=== PATIENT | male | born 1975 | race Caucasian/White ===

== ENCOUNTER → 2022-02-25 | Outpatient (CLI) | payer MEDICAID, SELFPAY | END | disposition home or self-care (01) | PROVIDERS: PCP Internal Medicine; Visit Provider Physician Assistant | DX: L03.90 Cellulitis, unspecified (principal) | CPT/HCPCS: 87070; 87077; 87186; 87205 ==

== ENCOUNTER 2022-02-27 10:28 | Emergency (ER) | payer MEDICAID, SELFPAY ==
[2022-02-27 10:30] VITALS: BP 148/93; PULSE 69; RESP 18; TEMP 36.7; O2SAT 97; BMI 28.2
--- NOTE | 2022-02-27 11:52 | EDS_ITS ---
HPI History of Present Illness Chief Complaint: Bite Narrative Narrative: Patient presents for wound check of an abscess on his left knee. He states that 3 weeks ago he was in [place], and had a spider bite to his left knee. He took Bactrim for 7 to 10 days. When he returned to [place], he was seen and evaluated by his primary care physician. He has been on cephalexin and doxycycline for the last 3 to 4 days. He denies any fevers or chills. No nausea or vomiting. No pain in his leg. He states that the swelling has gone down along with the erythema. He was cleaning the abscess on his left leg and it started draining a large amount a few days ago. He states that he was seen by the physician speech language pathologist assistant his primary care physician's office who sent him in for evaluation of his wound. He denies any pain in his knee. He is able to move it without difficulty. [facility] Medical History ADHD Anxiety and depression Driving safety issue Low libido Right knee pain Home Medications cephalexin 500 mg capsule 500 mg PO TID #21 caps 02/25/22 [Rx Last Taken Unknown] doxycycline hyclate 100 mg capsule 100 mg PO BID #14 caps 02/25/22 [Rx Last Taken Unknown] Allergy/AdvReac Type Severity Reaction Status Date / Time codeine Allergy Severe Anaphylaxis Verified 02/25/22 11:14 Social History Smoking Status: Never smoker alcohol intake: current substance use type: does not use what type of physical activity do you participate in: walking ROS ROS ED ROS Narrative Constitutional: No fever, no chills. HEENT: No sore throat. No neck pain. No loss of vision. No rhinorrhea. Cardiovascular: No chest pain. No palpitations. No pedal edema. Respiratory: No cough, no shortness of breath. Abdominal: No abdominal pain. No nausea. No vomiting. Genitourinary: No dysuria. No hematuria. Musculoskeletal: No myalgias. No arthralgias. Neurologic: No headaches. No dizziness. No lightheadedness. Skin: No rash. Positive abscess lateral left knee distal to patella, draining purulent material. Psychiatric: No depression. No anxiety. EXAM Physical Exam Narrative Exam Narrative: Afebrile. Vital signs noted. HEENT: Normocephalic. Atraumatic. PERRL, EOMI. Neck soft and supple. No point tenderness or step off. Cardiovascular: Regular rate and rhythm. No murmurs, rubs, or gallops appreciated. Respiratory: No tachypnea. Lungs clear to auscultation bilaterally. Gastrointestinal: Abdomen soft, nontender, with normoactive bowel sounds. No rebound or guarding. Neurological: Awake. Alert. Nonfocal, nonlateralizing. Skin: No rash. Normal color. No pallor. Positive draining abscess left lateral knee. Extension and flexion mechanisms intact. Palpable dorsalis pedis pulse. Minimal erythema. Improved from photo shown from a few days ago by patient. Musculoskeletal: No pedal edema. Full range of motion extremities. Const Vital Signs: 02/27/22 10:30 Temperature 98.1 F Temperature Source Temporal Pulse Rate 69 Respiratory Rate 18 Blood Pressure 148/93 H Blood Pressure Mean 111 Pulse Ox 97 Oxygen Delivery Method Room Air MDM MDM MDM Narrative Medical decision making narrative: Patient and his states that he were sent to ensure that there was no bony erosion. Patient has no pain in his left knee. I am not concerned about septic arthritis as he has full range of motion of his left knee without pain. I do feel he can be discharged safely home with follow-up to his primary care physician. He will continue his cephalexin and doxycycline and continue to apply warm compresses. I did offer to open up the wound further with incision and drainage but the patient declined. He states that he has seen vast improvement over the last few days with it already draining and the antibiotics he is taking. I do not feel that any imaging is indicated emergently. Return instructions to the emergency department were reviewed. Disposition is discharged home in stable condition. Discharge Plan Triage Chief Complaint: Bite Other Complaint: Cellulitis ED Provider: Dave Jeffries Dx/Rx/DC Orders Clinical Impression: Visit for wound check, Abscess of skin of left knee Instructions: ED Abscess Antibiotic Treatment Only Prescriptions: No Action cephalexin 500 mg capsule 500 mg PO TID Qty: 21 0RF doxycycline hyclate 100 mg capsule 100 mg PO BID Qty: 14 0RF Primary Care Provider: Radha Puente Referrals: Radha Puente MD [Primary Care Provider] - 1 Week if not improving Disposition Disposition: Home, Self Care
[2022-02-27 12:15] VITALS: PULSE 79; RESP 18; O2SAT 100
== END 2022-02-27 12:16 | disposition home or self-care (01) ==
PROVIDERS: Emergency Provider Emergency Medicine; PCP Internal Medicine; Visit Provider Emergency Medicine
DX: L02.91 Cutaneous abscess, unspecified (principal)
CPT/HCPCS: 99282